=== PATIENT | female | born 1980 | race Caucasian/White ===

== ENCOUNTER 2018-11-03 14:42 | Emergency (ER) | payer BC ==
[2018-11-03 15:05] VITALS: BP 145/64
--- NOTE | 2018-11-03 15:22 | UC ---
Ear Complaint HPI - HPI Summary HPI Summary: 38 yo female with left otalgia and decreased hearing x 2 days mild nasal congestion - History of Current Complaint Chief Complaint: UCEar Stated Complaint: LEFT EAR PAIN Time Seen by Provider: 11/03/18 15:21 Hx Obtained From: Patient Onset/Duration: Sudden Onset, Lasting Days Severity Initially: Moderate Severity Currently: Mild Pain Intensity: 4 Pain Scale Used: 0-10 Numeric Aggravating Factors: Nothing Alleviating Factors: Nothing Associated Signs/Symptoms: Positive: Hearing Loss, URI Symptoms Related History: Prior ENT Surgery - PETs - Allergies/Home Medications Allergies/Adverse Reactions: Allergies Allergy/AdvReac Type Severity Reaction Status Date / Time acetaminophen [From Vicodin] Allergy Vomiting Verified 11/03/18 15:06 hydrocodone [From Vicodin] Allergy Vomiting Verified 11/03/18 15:06 Home Medications: Home Medications Insulin Aspart [Novolog] 100 unit SQ DAILY 11/03/18 [History Confirmed 11/03/18] Insulin GLARGINE(*) [Lantus(*)] 0 units SUBCUT Q24H 11/03/18 [History Confirmed 11/03/18] Norethindrone [Samantha] 0.35 mg PO DAILY 11/03/18 [History Confirmed 11/03/18] PARoxetine HCL TAB* [Paxil TAB*] 30 mg PO DAILY 11/03/18 [History Confirmed ] metFORMIN* [Glucophage 1000 MG TAB *] 1,000 mg PO BID 11/03/18 [History Confirmed 11/03/18] PMH/Surg Hx/FS Hx/Imm Hx Previously Healthy: Yes - hx osteo right great toe Endocrine History: Diabetes - Surgical History Surgical History: Yes Surgery Procedure, Year, and Place: perirectal abscess. spinal surgery - Family History Known Family History: Positive: Hypertension, Diabetes - Social History Alcohol Use: Occasionally Substance Use Type: None Smoking Status (MU): Former Smoker Review of Systems All Other Systems Reviewed And Are Negative: Yes Constitutional: Positive: Fever, Chills Skin: Positive: Negative Eyes: Positive: Negative ENT: Positive: Ear Ache, Sinus Congestion Respiratory: Positive: Negative Cardiovascular: Positive: Negative Gastrointestinal: Positive: Negative Genitourinary: Positive: Negative Motor: Positive: Negative Neurovascular: Positive: Negative Musculoskeletal: Positive: Negative Neurological: Positive: Negative Psychological: Positive: Negative Physical Exam Triage Information Reviewed: Yes Appearance: Well-Appearing, No Pain Distress, Well-Nourished Vital Signs: Initial Vital Signs Temp 98.8 F 11/03/18 15:00 Pulse 85 11/03/18 15:00 Resp 16 11/03/18 15:00 BP 145/64 11/03/18 15:00 Pulse Ox 100 11/03/18 15:00 Eyes: Positive: Conjunctiva Clear ENT: Negative: Hearing grossly normal, Nasal congestion, Nasal drainage, TMs normal - left red/swollen, Tonsillar swelling, Tonsillar exudate, Trismus, Muffled voice, Hoarse voice, Dental tenderness, Sinus tenderness Neck: Positive: Supple, Nontender, No Lymphadenopathy Respiratory: Positive: Lungs clear, Normal breath sounds, No respiratory distress, No accessory muscle use Cardiovascular: Positive: RRR, No Murmur Musculoskeletal: Positive: ROM Intact, No Edema Neurological: Positive: Alert Psychological Exam: Normal Skin Exam: Normal Ear Complaint Course/Dx - Differential Dx/Diagnosis Provider Diagnosis: Left otitis media Discharge - Sign-Out/Discharge Documenting (check all that apply): Patient Departure All imaging exams completed and their final reports reviewed: No Studies - Discharge Plan Condition: Stable Disposition: HOME Prescriptions: Amoxicillin PO (*) [Amoxicillin 875 MG (*)] 875 mg PO BID #20 tab Patient Education Materials: Ear Infection (ED) Referrals: No Primary Care Phys,NOPCP [Primary Care Provider] - Additional Instructions: advil or aleve for pain recheck if pain not improved in 2-3 days see your MD in 2-3 weeks if hearing not back to hedy; - Billing Disposition and Condition Condition: STABLE Disposition: Home
== END 2018-11-03 15:35 | disposition home or self-care (01) ==
LOC: UCCORT 14:42
DX: H66.92 Otitis media, unspecified, left ear (principal); R09.81 Nasal congestion; E11.9 Type 2 diabetes mellitus without complications; Z88.5 Allergy status to narcotic agent; Z79.4 Long term (current) use of insulin; Z87.891 Personal history of nicotine dependence
CPT/HCPCS: 99212; G0463

== ENCOUNTER 2018-11-21 16:20 | Emergency (ER) | payer BC ==
[2018-11-21] MEDS ORDERED: Ondansetron ODT TAB* 4 MG PO ONE (16:42)
[2018-11-21 16:47] VITALS: BP 152/89
[2018-11-21 17:09] LABS: Influenza A Molecular NEGATIVE (Negative); Influenza B Molecular NEGATIVE (Negative)
--- NOTE | 2018-11-21 17:24 | UC ---
FLU HPI - HPI Summary HPI Summary: Ill since yesterday with flu-like symptoms - History of Current Complaint Chief Complaint: UCGI Stated Complaint: CHILLS,NAUSEA,FEVER Time Seen by Provider: 11/21/18 16:35 Hx Obtained From: Patient Hx Last Menstrual Period: IS ON THE BCP THAT STOPS HER PERIODS ?: No Onset/Duration: Sudden Onset Severity Currently: Moderate Severity Initially: Moderate Pain Intensity: 4 Associated Signs & Symptoms: Positive: Fever, Myalgia, Cough, Nasal Congestion - Dry heaves when she is coughing - Allergy/Home Medications Allergies/Adverse Reactions: Allergies Allergy/AdvReac Type Severity Reaction Status Date / Time hydrocodone [From Vicodin] Allergy Severe Vomiting Verified 11/21/18 16:35 acetaminophen [From Vicodin] Allergy Vomiting Verified 11/21/18 16:35 Home Medications: Home Medications Cholecalciferol TAB* [Vitamin D TAB*] 1,000 unit PO DAILY 11/21/18 [History Confirmed 11/21/18] Garlic 11/21/18 [History] Multivitamin [Multivitamins] 1 cap PO 11/21/18 [History] Stratton-3 Fatty Acids/Fish Oil [Fish Oil 1,000 mg Softgel] 1 each PO DAILY [History Confirmed 11/21/18] Selenium [Oceanic Selenium] 50 mcg PO DAILY 11/21/18 [History Confirmed 11/21/18 ] Ubidecarenone [Co Q-10] 30 mg PO 11/21/18 [History] Ubidecarenone [Co Q-10] 30 mg PO 11/21/18 [History] Vitamin A Palmitate [Vitamin A] 10,000 unit PO 11/21/18 [History] Vitamin B Complex Vit C No.3 [B Complex/Vitamin C] 1 cap PO 11/21/18 [History] Vitamin E 100 unit PO 11/21/18 [History] PMH/Surg Hx/FS Hx/Imm Hx - Additional Past Medical History Additional PMH: Pt takes Metformin and insulin. She does have a sliding insulin scale for when her blood sugar is elevated. She is taking liquids but hasn't eaten food today. Previously Healthy: Yes Endocrine History: Diabetes - Surgical History Surgical History: Yes Surgery Procedure, Year, and Place: perirectal abscess. spinal surgery - Family History Known Family History: Positive: Hypertension, Diabetes - Social History Alcohol Use: Occasionally Substance Use Type: None Smoking Status (MU): Former Smoker Review of Systems All Other Systems Reviewed And Are Negative: Yes Constitutional: Positive: Fever, Chills Skin: Positive: Negative Eyes: Positive: Negative ENT: Positive: Nasal Discharge Respiratory: Positive: Cough - Mildly congested cough Cardiovascular: Positive: Negative Gastrointestinal: Positive: Other - Dry heaves when coughing Genitourinary: Positive: Negative Motor: Positive: Negative Neurovascular: Positive: Negative Musculoskeletal: Positive: Myalgia Neurological: Positive: Negative Psychological: Positive: Negative Is Patient Immunocompromised?: No Physical Exam Triage Information Reviewed: Yes Appearance: No Pain Distress, Well-Nourished, Ill-Appearing Vital Signs: Initial Vital Signs Temp 98.7 F 11/21/18 16:39 Pulse 104 11/21/18 16:39 Resp 20 11/21/18 16:39 BP 152/89 11/21/18 16:39 Pulse Ox 100 11/21/18 16:39 Vital Signs Reviewed: Yes Eye Exam: Normal ENT: Positive: Pharynx normal, Nasal congestion, Nasal drainage - Clear nasal coryza, TMs normal, Uvula midline. Negative: Tonsillar swelling, Tonsillar exudate, Trismus, Muffled voice, Hoarse voice Neck exam: Normal Neck: Positive: Supple, Nontender, No Lymphadenopathy Respiratory Exam: Normal Respiratory: Positive: Lungs clear, Normal breath sounds, No respiratory distress, No accessory muscle use - Mildly moist cough, no distress Cardiovascular Exam: Normal Cardiovascular: Positive: RRR, No Murmur, Pulses Normal, Brisk Capillary Refill Abdominal Exam: Normal Abdomen Description: Positive: Nontender, Soft Bowel Sounds: Positive: Present Musculoskeletal Exam: Normal Neurological Exam: Normal Psychological Exam: Normal Skin Exam: Normal Flu Course/Dx - Course Course Of Treatment: Rapid flu test negative. CXR: IMPRESSION: #. No evidence for pneumonia or other acute intrathoracic process. U/A: 3+ ketones, Urine HCG negative Pt advised to go to ER for further treatment. She prefers to go by car with boyfriend driving from here. Refused ambulance. Pt stable to go by car. Although she does not register a fever, she feels hot to touch. - Differential Dx/Diagnosis Differential Diagnosis/HQI/PQRI: Other - Flu-like symptoms, hyperglycemia, ketones in urine. Provider Diagnosis: Hyperglycemia, Flu-like symptoms, Ketonuria Discharge - Sign-Out/Discharge Documenting (check all that apply): Patient Departure All imaging exams completed and their final reports reviewed: Yes - Discharge Plan Condition: Fair Disposition: HOME-RECOMMEND TO ED Referrals: No Primary Care Phys,NOPCP [Primary Care Provider] - Additional Instructions: To go directly to ER from here. - Billing Disposition and Condition Condition: FAIR Disposition: Home-Recommend to ED - Attestation Statements Provider Attestation: Per institutional requirements, I have reviewed the chart, however, I was not consulted specifically or made aware of this patient by the midlevel provider. I did not personally evaluate, interact with , or disposition this patient.
== END 2018-11-21 18:05 | disposition home health service (06) ==
LOC: UCCORT 16:20
DX: E11.65 Type 2 diabetes mellitus with hyperglycemia (principal); R82.4 Acetonuria; R11.0 Nausea; R05 Cough; R09.81 Nasal congestion; M79.10 Myalgia, unspecified site; Z88.8 Allergy status to other drugs, medicaments and biological substances; Z79.4 Long term (current) use of insulin; Z88.5 Allergy status to narcotic agent
CPT/HCPCS: 71046; 81003; 84702; 99212; A9270-GY; G0463

== ENCOUNTER 2019-01-09 10:24 | Emergency (ER) | payer BC ==
[2019-01-09 11:02] VITALS: BP 156/81
--- NOTE | 2019-01-09 11:16 | UC ---
Throat Pain/Nasal Mk HPI - HPI Summary HPI Summary: PT PRESENTS WITH C/O NASAL CONGESTION, COUGH, SINUS PRESSURE FATIGUE AND MALAISE x 1 WEEK. - History of Current Complaint Chief Complaint: UCGeneralIllness Stated Complaint: SINUS CONCERN Time Seen by Provider: 01/09/19 11:02 Hx Obtained From: Patient Hx Last Menstrual Period: IS ON THE BCP THAT STOPS HER PERIODS ?: No Onset/Duration: Gradual Onset, Lasting Days, Still Present Severity: Moderate Pain Intensity: 0 Associated Signs & Symptoms: Positive: Sinus Discomfort Related History: Seasonal Allergies - Epiglottits Risk Factors Epiglottis Risk Factors: Negative - Allergies/Home Medications Allergies/Adverse Reactions: Allergies Allergy/AdvReac Type Severity Reaction Status Date / Time hydrocodone [From Vicodin] Allergy Severe Vomiting Verified 01/09/19 11:02 acetaminophen [From Vicodin] Allergy Vomiting Verified 01/09/19 11:02 PMH/Surg Hx/FS Hx/Imm Hx Previously Healthy: Yes - Surgical History Surgical History: Yes Surgery Procedure, Year, and Place: perirectal abscess. spinal surgery - Family History Known Family History: Positive: Hypertension, Diabetes - Social History Occupation: Employed Full-time Lives: With Family Alcohol Use: Occasionally Substance Use Type: None Smoking Status (MU): Former Smoker Type: Cigarettes Amount Used/How Often: 3/4 PPD X 20+YRS Length of Time of Smoking/Using Tobacco: 20+YRS Have You Smoked in the Last Year: Yes When Did the Patient Quit Smoking/Using Tobacco: June 2013 - Immunization History Vaccination Up to Date: Yes Review of Systems All Other Systems Reviewed And Are Negative: Yes Constitutional: Positive: Chills, Fatigue Skin: Positive: Negative Eyes: Positive: Negative ENT: Positive: Sore Throat, Sinus Congestion Respiratory: Positive: Cough Cardiovascular: Positive: Negative Gastrointestinal: Positive: Negative Genitourinary: Positive: Negative Motor: Positive: Negative Neurovascular: Positive: Negative Musculoskeletal: Positive: Negative Neurological: Positive: Negative Psychological: Positive: Negative Is Patient Immunocompromised?: No Physical Exam Triage Information Reviewed: Yes Appearance: Ill-Appearing Vital Signs: Initial Vital Signs Temp 97.3 F 01/09/19 10:55 Pulse 93 01/09/19 10:55 Resp 18 01/09/19 10:55 BP 156/81 01/09/19 10:55 Pulse Ox 99 01/09/19 10:55 Vital Signs Reviewed: Yes Eye Exam: Normal ENT: Positive: Nasal congestion, Sinus tenderness Dental Exam: Normal Neck exam: Normal Respiratory Exam: Normal Cardiovascular Exam: Normal Musculoskeletal Exam: Normal Neurological Exam: Normal Psychological Exam: Normal Skin Exam: Normal Throat Pain/Nasal Course/Dx - Differential Dx/Diagnosis Differential Diagnosis/HQI/PQRI: Sinusitis, URI Provider Diagnosis: Sinusitis Discharge - Sign-Out/Discharge Documenting (check all that apply): Patient Departure All imaging exams completed and their final reports reviewed: No Studies - Discharge Plan Condition: Stable Disposition: HOME Prescriptions: Amoxicillin PO (*) [Amoxicillin 875 MG (*)] 875 mg PO Q12H #20 tab Benzonatate CAP* [Tessalon 100 MG CAP*] 200 mg PO Q8H PRN #30 cap PRN Reason: Cough Cetirizine* [ZyrTEC 10 MG TAB*] 10 mg PO DAILY #10 tab predniSONE TAB* [Deltasone 10 MG TAB*] 30 mg PO DAILY #12 tab Patient Education Materials: Sinusitis (ED) Referrals: [facility] [place] [facility] [Outside] - If Needed No Primary Care Phys,NOPCP [Primary Care Provider] - - Billing Disposition and Condition Condition: STABLE Disposition: Home
== END 2019-01-09 11:26 | disposition home or self-care (01) ==
LOC: UCCORT 10:24
DX: J32.9 Chronic sinusitis, unspecified (principal); R05 Cough; R09.81 Nasal congestion; R53.81 Other malaise; R53.83 Other fatigue; Z88.5 Allergy status to narcotic agent; Z88.8 Allergy status to other drugs, medicaments and biological substances; Z87.891 Personal history of nicotine dependence
CPT/HCPCS: 99212; G0463

== ENCOUNTER 2019-01-16 09:44 | Emergency (ER) | payer BC ==
[2019-01-16 10:04] VITALS: BP 143/76
--- NOTE | 2019-01-16 10:44 | UC ---
Throat Pain/Nasal Mk HPI - HPI Summary HPI Summary: 38 year old female with PMH + for DM II, presents iwth sinus pain, headache, cough- productive. Patient was seen 5/6 started on amox, prednisone. STates no improvement and sinus pressure, drainage, and QUEEN have been worsening over past 2-3 days. 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 Increased pressure pain, has not missed dosages of abx or steroids. no SOB, wheezing. no throat pain, ear pain - History of Current Complaint Chief Complaint: UCRespiratory Stated Complaint: SINUS PRESSURE,QUEEN Time Seen by Provider: 01/16/19 10:16 Hx Obtained From: Patient Hx Last Menstrual Period: unknown ?: No Onset/Duration: Sudden Onset, Lasting Weeks Severity: Moderate Pain Intensity: 4 Pain Scale Used: 0-10 Numeric Cough: Productive Associated Signs & Symptoms: Positive: Sinus Discomfort, Nasal Discharge Related History: Smoking, Other (Noted In Comments) - DM II - Allergies/Home Medications Allergies/Adverse Reactions: Allergies Allergy/AdvReac Type Severity Reaction Status Date / Time hydrocodone [From Vicodin] Allergy Severe Vomiting Verified 01/16/19 09:57 PMH/Surg Hx/FS Hx/Imm Hx Previously Healthy: No Endocrine History: Diabetes Respiratory History: Other - ho tob use - Surgical History Surgical History: Yes Surgery Procedure, Year, and Place: perirectal abscess. spinal surgery. tubes in ears. - Family History Known Family History: Positive: Hypertension, Diabetes - Social History Alcohol Use: Occasionally Substance Use Type: None Smoking Status (MU): Former Smoker Type: Cigarettes Amount Used/How Often: 3/4 PPD X 20+YRS Length of Time of Smoking/Using Tobacco: 20+YRS Have You Smoked in the Last Year: Yes When Did the Patient Quit Smoking/Using Tobacco: June 2013 - Immunization History Vaccination Up to Date: Yes Review of Systems All Other Systems Reviewed And Are Negative: Yes Constitutional: Positive: Fatigue ENT: Positive: Sore Throat, Nasal Discharge, Sinus Congestion, Sinus Pain/ Tenderness. Negative: Ear Ache Respiratory: Positive: Cough. Negative: Shortness Of Breath Is Patient Immunocompromised?: No Physical Exam Triage Information Reviewed: Yes Appearance: No Pain Distress, Well-Nourished, Ill-Appearing - mild Vital Signs: Initial Vital Signs Temp 97 F 01/16/19 10:00 Pulse 96 01/16/19 10:00 Resp 20 01/16/19 10:00 BP 143/76 01/16/19 10:00 Pulse Ox 99 01/16/19 10:00 Vital Signs Reviewed: Yes Eyes: Positive: Conjunctiva Clear ENT: Positive: Pharyngeal erythema - minimal, TMs normal - + fluid behind TM b/l , Sinus tenderness, Uvula midline. Negative: TM bulging, TM dull, TM red, Tonsillar swelling, Tonsillar exudate Neck: Positive: Supple, Nontender, No Lymphadenopathy. Negative: Nuchal Rigidity, Enlarged Nodes @ Respiratory: Positive: Chest non-tender, Lungs clear, Normal breath sounds, No respiratory distress, No accessory muscle use. Negative: Crackles, Rhonchi, Stridor, Wheezing Cardiovascular: Positive: RRR, No Murmur Psychological Exam: Normal Skin Exam: Normal Throat Pain/Nasal Course/Dx - Course Course Of Treatment: exam, history consistent with SINusitis, failed tx with amoxicillin, due to DM, TOb use in past will treat with levofloxacin, referral to ENT. - Differential Dx/Diagnosis Differential Diagnosis/HQI/PQRI: Pharyngitis, Sinusitis Provider Diagnosis: Sinusitis Discharge - Sign-Out/Discharge Documenting (check all that apply): Patient Departure All imaging exams completed and their final reports reviewed: No Studies - Discharge Plan Condition: Good Disposition: HOME Prescriptions: Fluticasone NASAL SPRAY 50MCG* [Flonase NASAL SPRAY 50MCG*] 2 spray BOTH NARES DAILY #1 btl levoFLOXacin [Levofloxacin] 750 mg PO DAILY #7 tablet Levofloxacin TAB* [Levaquin 750 MG TAB*] 750 mg PO DAILY #7 tab Patient Education Materials: Levofloxacin (By mouth), Sinusitis (ED) Referrals: No Primary Care Phys,NOPCP [Primary Care Provider] - Vimal Rogers MD [Medical Doctor] - Surya Holman MD [Medical Doctor] - Additional Instructions: - ANtibiotics as directed - If no improvement within 1-2 days, follow up with ENT - GO to ER with increased headache, fever > 102, neck stiffness - INcrease fluid intake, humidifer at night - Tylenol/ motrin as needed for headache, sinus pressure. - Billing Disposition and Condition Condition: GOOD Disposition: Home - Attestation Statements Provider Attestation: Per institutional requirements, I have reviewed the chart, however, I was not consulted specifically or made aware of this patient by the midlevel provider. I did not personally evaluate, interact with , or disposition this patient.
== END 2019-01-16 10:59 | disposition home or self-care (01) ==
LOC: UCCORT 09:44
DX: J32.9 Chronic sinusitis, unspecified (principal); E11.9 Type 2 diabetes mellitus without complications; Z88.5 Allergy status to narcotic agent; Z87.891 Personal history of nicotine dependence
CPT/HCPCS: 99212; G0463

== ENCOUNTER 2019-08-07 18:01 | Emergency (ER) | payer BC ==
[2019-08-07 18:24] VITALS: BP 150/73
--- NOTE | 2019-08-07 18:40 | UC ---
Bite Injury/Animal HPI - HPI Summary HPI Summary: 39-year-old woman comes in with a chief complaint of an infected cat bite left hand. 2 days ago August 05, 2019 she was visiting a friend and [facility] and the patient's friends cat bit her on the left hand. Initially was quite a bit of swelling. The swelling went down however now one area is erythematous and his drain some pus. The area of the infection is between the thumb and index finger. Patient does have diabetes. She feels well otherwise. She had her last tetanus shot in the last 6 months. Patient reports that the cat is an in-house only cat and is up-to-date on all of its shots. The pain is in the hand and does not radiate to the wrist or up the arm. Patient does have more pain with palpation and range of motion of the hand especially with making a fist. - History of Current Complaint Chief Complaint: UCBiteInjury Stated Complaint: CAT BITE LEFT HAND Time Seen by Provider: 08/07/19 18:04 Hx Last Menstrual Period: 08/06/19 Pain Intensity: 2 - Allergies/Home Medications Allergies/Adverse Reactions: Allergies Allergy/AdvReac Type Severity Reaction Status Date / Time hydrocodone [From Vicodin] Allergy Severe Vomiting Verified 08/07/19 18:21 Home Medications: Home Medications Atorvastatin* [Lipitor*] 10 mg PO DAILY 08/07/19 [History Confirmed 08/07/19] Insulin GLARGINE(*) [Lantus(*)] 54 unit QAM 08/07/19 [History Confirmed 08/07/19 ] Insulin LISPRO* [HumaLOG*] 12 units TID 08/07/19 [History Confirmed 08/07/19] Lisinopril TAB* [Prinivil TAB*] 1 tab PO DAILY 08/07/19 [History Confirmed 08/07] PMH/Surg Hx/FS Hx/Imm Hx Previously Healthy: Yes Endocrine History: Diabetes, Dyslipidemia Cardiovascular History: Hypertension - Surgical History Surgical History: Yes Surgery Procedure, Year, and Place: perirectal abscess. spinal surgery. tubes in ears. RIGHT foot bone spur- 1 screw - Family History Known Family History: Positive: Hypertension, Diabetes - Social History Alcohol Use: Occasionally Substance Use Type: None Smoking Status (MU): Smoker, Current Status Unknown Type: Cigarettes, Cigars Amount Used/How Often: 3/4 PPD X 20+YRS; 1-2 cigars/day Length of Time of Smoking/Using Tobacco: 20+YRS Have You Smoked in the Last Year: Yes When Did the Patient Quit Smoking/Using Tobacco: June 2013 - Immunization History Vaccination Up to Date: Yes Review of Systems All Other Systems Reviewed And Are Negative: Yes Constitutional: Positive: Negative Skin: Positive: Other - see hpi Eyes: Positive: Negative ENT: Positive: Negative Respiratory: Positive: Negative Cardiovascular: Positive: Negative Gastrointestinal: Positive: Negative Motor: Positive: Other - see hpi Musculoskeletal: Positive: Other: - see hpi Neurological: Positive: Negative Psychological: Positive: Negative Is Patient Immunocompromised?: No Physical Exam Triage Information Reviewed: Yes Appearance: Well-Appearing, No Pain Distress, Well-Nourished Vital Signs: Initial Vital Signs Temp 98.5 F 08/07/19 18:17 Pulse 86 08/07/19 18:17 Resp 16 08/07/19 18:17 BP 150/73 08/07/19 18:17 Pulse Ox 100 08/07/19 18:17 Vital Signs Reviewed: Yes Eye Exam: Normal Eyes: Positive: Conjunctiva Clear Neck: Positive: Supple Respiratory: Positive: No respiratory distress Musculoskeletal: Positive: Other: - On the left hand in the webbing between the thumb and a index finger there is an area of swelling with a puncture wound that is not draining at this time there is erythema approximately 2-1/2 cm in diameter. There is no streaking. Is difficult for the patient to make a fist due to the swelling. Wrist is Full range of motion. Normal capillary refill normal sensation. Neurological: Positive: Alert - The left hand in the webbing between the thumb and index finger there is swelling and erythema. Is a puncture wound without any drainage no streaking. Fingers and wrist to have full range of motion however making a fist is difficult for the patient. Normal capillary refill normal sensation. Psychological: Positive: Age Appropriate Behavior Skin: Positive: Other - On the left hand in the webbing between the thumb and the index finger there is a puncture wound that is not draining at this time with 2-1/2 cm area of erythema. No streaking. Bite Injury Course/Dx - Course Course Of Treatment: I discussed the case with the orthopedist on-call Dr. La. Her starting Augmentin at this time and she is using warm soaks. The plan is to have the patient follow-up tomorrow with orthopedics either the hand specialist or Dr. Restrepo here in [place]. If the patient worsens she is to go directly to the emergency department. This was all discussed with the patient. - Differential Dx/Diagnosis Provider Diagnosis: Cat bite of left hand with infection Discharge ED - Sign-Out/Discharge Documenting (check all that apply): Patient Departure All imaging exams completed and their final reports reviewed: No Studies - Discharge Plan Condition: Stable Disposition: HOME Prescriptions: Amoxicillin/Clavulanate TAB* [Augmentin TAB 875*] 875 mg PO BID #20 tab Patient Education Materials: Animal Bite (ED), Cellulitis (ED) Referrals: Rob Alejandro PA [Primary Care Provider] - Fely Russo MD [Medical Doctor] - Madhu Restrepo MD [Medical Doctor] - Additional Instructions: FOLLOW UP WITH THE ORTHOPEDIC HAND SPECIALIST (DR RUSSO) OR THE ORTHOPEDIST, DR RESTREPO. GO TO THE EMERGENCY DEPARTMENT SOONER IF NOT IMPROVING OR WORSE; SPREAD OF INFECTION OR ANY QUESTIONS OR CONCERNS. - Billing Disposition and Condition Condition: STABLE Disposition: Home
--- OUTSIDE RECORDS SUMMARY | 2019-08-08 16:31 | XMS REPORT | Continuity of Care Document ---
:1980 External Reference #:[id number] Author Name Madhu Restrepo MD (transmitted by agent of provider Anthony Huertas) Address [address] [place] [id number] Care Team Providers Name Role Phone Tre Alejandro RPA - Physician Care Team Information Architecture Technician [phone] Manager Quantitative Problems Description No Information Available Social History Type Date Description Comments Sex Unknown Allergies, Adverse Reactions, Alerts Active Allergies Reaction Severity Comments Date Vicodin 08/08/2019 Medications Active Medications SIG Qnty Indications Ordering Provider Date Paxil 1 by mouth every 90tabs Madhu Restrepo, 08/08/2019 20mg Tablets day Metformin HCL take one tablet Unknown 1000mg by mouth twice a Tablets day Atorvastatin Calcium 1 by mouth every Unknown day 40mg Tablets Lisinopril 1 by mouth every Unknown 20mg Tablets day Lantus 50-54 units in Unknown 100Unit/ML the morning Solution Humalog Kwikpen coverage as Unknown needed 100Unit/ML Solution Pen-Inject Amoxicillin 1 by mouth twice Unknown 875mg a day Tablets Immunizations Description No Information Available Vital Signs Date Vital Result Comment 08/08/2019 1:32pm Height 70 inches 5'10" Weight 323.00 lb Heart Rate 84 /min Respiratory Rate 16 /min Body Temperature 98.3 F Pain Level 2 O2 % BldC Oximetry 98 % BMI (Body Mass Index) 46.3 kg/m2 Results Description No Information Available Procedures Description No Information Available Medical Devices Description No Information Available Encounters Type Date Location Provider Dx Diagnosis Office Visit 08/08/2019 [facility] Madhu Restrepo, W55.01xA Bitten by cat, 1:15p at [place] initial encounter L02.512 Cutaneous abscess of left hand Assessments Date Code Description Provider 08/08/2019 W55.01xA Bitten by cat, initial encounter Madhu Restrepo MD 08/08/2019 L02.512 Cutaneous abscess of left hand Madhu Restrepo MD Plan of Treatment Future Appointment(s):08/17/2019 1:15 pm - Madhu Restrepo MD at [facility] at [facility]/03/2019 - Madhu Restrepo MDW55.01xA Bitten by cat, initial encounterFollow up:Follow up: 1 weekL02.512 Cutaneous abscess of left hand Functional Status Description No Information Available Mental Status Description No Information Available Referrals Description No Information Available
== END 2019-08-07 18:52 | disposition home or self-care (01) ==
LOC: UCCORT 18:01
DX: S61.452A Open bite of left hand, initial encounter (principal); L08.9 Local infection of the skin and subcutaneous tissue, unspecified; E11.9 Type 2 diabetes mellitus without complications; I10 Essential (primary) hypertension; E78.5 Hyperlipidemia, unspecified; F17.210 Nicotine dependence, cigarettes, uncomplicated; Z88.5 Allergy status to narcotic agent; Z79.4 Long term (current) use of insulin; Z79.899 Other long term (current) drug therapy; W55.01XA Bitten by cat, initial encounter; Y92.9 Unspecified place or not applicable
CPT/HCPCS: 99212; G0463